=== PATIENT | female | born 1995 | race Caucasian/White ===

== ENCOUNTER 2022-08-11 14:00 | Emergency (ER) | payer MEDICAID ==
[~2022-08-11 14:00] MED LIST: BENTYL 20MG TAB20 MG PO; ZOFRAN ODT 4 MG4 MG PO
[2022-08-11 14:33] LABS: HEMOGLOBIN 14.4 gm/dl (12.3-15.3); RED BLOOD COUNT 4.79 M/UL (4.00-5.10); WHITE BLOOD COUNT 9.8 K/UL (4.5-11.0)
[2022-08-11 15:05] LABS: BUN/CREATININE RATIO 16 (0-10)
[2022-08-11] MEDS ORDERED: OMNICEF 300 MG300 MG PO (22:44)
[2022-08-11] MEDS ORDERED: PRENATAL TABLE1 EAC1 PO (22:44)
== END 2022-08-11 23:00 | disposition home or self-care (01) ==
LOC: ER1 14:00
PROVIDERS: Emergency Medicine
DX: O99.511 Diseases of the respiratory system complicating pregnancy, first trimester (principal); J02.9 Acute pharyngitis, unspecified; O23.11 Infections of bladder in pregnancy, first trimester; O99.331 Smoking (tobacco) complicating pregnancy, first trimester; F17.290 Nicotine dependence, other tobacco product, uncomplicated; Z20.822 Contact with and (suspected) exposure to COVID-19
CPT/HCPCS: 76817; 80053; 81001; 83690; 84702; 84703; 85025; 86403; 86900; 86901; 87081; 87880; 99283; U0002